=== PATIENT | male | born 1985 | race Two or more races ===

== ENCOUNTER 2017-05-24 08:18 | Day surgery (SDC) | payer OTHER ==
[2017-05-16 12:31] VITALS: BMI 32.1
[2017-05-24] MEDS ORDERED: ONDANSETRON 4 MG/2 ML VIAL ONE (09:36)
[2017-05-24] MEDS ORDERED: LIDOCAINE HCL/PF 2% SDV 5ML VIAL ONE (09:36)
[2017-05-24] MEDS ORDERED: DEXAMETHASONE SOD PHOSPHATE 4 MG/1 ML VIAL ONE (09:36)
[2017-05-24] MEDS ORDERED: PROPOFOL 20 ML ONE ×2 (09:37→09:39)
[2017-05-24] MEDS ORDERED: MIDAZOLAM HCL 2 MG/2 ML SINGLE DOSE VIAL ONE (09:37)
[2017-05-24] MEDS ORDERED: ceFAZolin SODIUM 1 GM VIAL ONE (10:41)
[2017-05-24] MEDS ORDERED: DESFLURANE GAS 240 ML BOTTLE IH ONE (10:46)
[2017-05-24] MEDS ORDERED: BUPIVACAINE HCL/PF 2.5 MG/ML - 30 ML VIAL IJ ONE (11:16)
[2017-05-24 13:07] VITALS: TEMP 97.6
[2017-05-24 13:40] VITALS: BP 126/78; PULSE 66
--- NOTE | 2017-05-27 11:53 | OP ---
DATE OF OPERATION: 05/24/2017 LOCATION: [facility]. SURGEON: Luigi Bell MD HAND II TUBE BENDER: CHRYSTAL Galvez PREOPERATIVE DIAGNOSIS: Left elbow mass, olecranon bursa. POSTOPERATIVE DIAGNOSIS: Left elbow mass, olecranon bursa. PROCEDURE: Excision of left elbow olecranon bursa and mass. FINDINGS: Thickened olecranon bursa with appearance of gouty tophi. PROCEDURE: Informed consent was obtained. The patient was taken to the operating room, where the left upper extremity was prepped and draped in a sterile fashion. Tourniquet was placed on the upper arm, inflated to 250 mmHg. Incision was made on the central portion of the posterior elbow. The mass was identified and this was removed, taken down to the fascial layer, paying careful attention to avoid neurovascular structures. A portion of the skin was removed also because of the stretching of skin over time. The wound was irrigated with copious amounts of irrigation, and pathology was sent. Layered closure with 0 Vicryl, 2-0 Vicryl, and 3-0 Prolene was performed. Sterile dressing and splint was placed. The patient was transferred to recovery without complication. LUIGI BELL M.D. [id number]
--- NOTE | 2017-05-29 14:11 | PATH ---
Surgical Pathology Report Patient Name: RADHA CONCEPCION Med. Rec. #: [id number] /Age/Gender: 1985 (Age: 31) / M Account: [id number] Location: [facility] AM[facility] Taken: 05/24/2017 Received: 05/24/2017 Reported: 05/29/2017 Physicians: Irving Coates M.D. Specimen(s) Received LEFT ELBOW MASS AND SKIN Clinical History Left elbow mass Final Diagnosis ELBOW, LEFT, MASS AND SKIN, EXCISION: SKIN AND SUBCUTANEOUS TISSUE SHOWING XANTHOMA/XANTHELASMA. (SEE NOTE) NOTE: The lesion is comprised of nodular aggregates of lipid-laden histiocytes. The lesional cells are positive for CD68 (performed at [place], [place]: [id number]), while negative for AE1/3 and S100 (performed at [facility]). These findings support the diagnosis. Electronically Signed Lia Jim M.D. Gross Description Received in formalin labeled "left elbow mass," is a 3.8 x 3.0 x 2.0 cm horan-yellow, irregular, unoriented soft tissue mass. Sectioning reveals yellow-orange, lobulated parenchyma. Also received within the same container is a 4.8 x 1.0 cm brown, elliptical, unoriented portion of skin. No epidermal lesions are identified. Inside Meter Tester sections are submitted in one cassette. /05/24/2017 saudi05/24/2017
== END 2017-05-24 13:41 | disposition home or self-care (01) ==
LOC: FASU 08:18
PROVIDERS: ATTEND Orthopaedic Surgery
PROC: 0JBH0ZX Excision of Left Lower Arm Subcutaneous Tissue and Fascia, Open Approach, Diagnostic (ICD-10-PCS; principal; 2017-05-24 10:00)
DX: D21.12 Benign neoplasm of connective and other soft tissue of left upper limb, including shoulder (principal)
CPT/HCPCS: 88305-TC; 88341-TC; 88342-TC